=== PATIENT | female | born 1955 | race Caucasian/White ===

== ENCOUNTER 2022-04-08 07:02 | Day surgery (SDC) | payer MEDICARE, MEDICAID ==
[~2022-04-08] VITALS: Ht 149.9 cm; Wt 48.1 kg
[~2022-04-08 07:02] MED LIST: AMIO200T33 PO; APIX5TAB PO; ATOR10TA52 PO; BUSP5TAB51 PO; CARV6.2551 PO; CHOL20007 PO; DIGO0.12 PO; EMPA1TAB PO; FURO20TA3 PO; LISI-707 PO; MAGN400T40 PO; MIRT1TAB PO; POTA10TA32 PO
[2022-04-08] MEDS ORDERED: MIDAZOLAM HCL 2MG/2ML 2ml VIAL (1mg/ml) ONE (08:41)
[2022-04-08] MEDS ORDERED: VERAPAMIL 2.5MG/ML INJ 2ML VIAL IV ONE (08:41)
[2022-04-08] MEDS ORDERED: HEPARIN SODIUM (PORCINE) 5000 UNITS/ML 1ML VIAL ONE (08:41)
[2022-04-08] MEDS ORDERED: fentaNYL CITRATE 100 MCG/2 ML VL ONE (08:41)
[2022-04-08] MEDS ORDERED: SODIUM CHL 0.9% 0 ML ONE (08:42)
[2022-04-08] MEDS ORDERED: ANGIOMAX 250 MG VIAL IV ONE (08:42)
[2022-04-08] MEDS ORDERED: LIDOCAINE 2%HCL (LOCAL ANESTH.) INJ 20ML MDV ONE (08:47)
== END 2022-04-08 11:28 | disposition home or self-care (01) ==
LOC: CATH 07:02
PROVIDERS: ATTEND Internal Medicine Cardiovascular Disease
DX: R06.09 Other forms of dyspnea (principal); I48.91 Unspecified atrial fibrillation; E78.5 Hyperlipidemia, unspecified; E11.51 Type 2 diabetes mellitus with diabetic peripheral angiopathy without gangrene; I11.0 Hypertensive heart disease with heart failure; I50.20 Unspecified systolic (congestive) heart failure; Z79.899 Other long term (current) drug therapy; Z20.822 Contact with and (suspected) exposure to COVID-19
CPT/HCPCS: 93458; C1887; C1894; J1644; J2250; J3010; U0003; 99152